=== PATIENT | male | born 1960 | race Caucasian/White ===

== ENCOUNTER 2016-10-20 05:49 | Day surgery (SDC) | payer OTHER ==
[~2016-10-20] VITALS: Ht 180.3 cm; Wt 76.0 kg
[2016-10-20 06:25] VITALS: BP 131/84
[2016-10-20] MEDS ORDERED: LIDOCAINE 1%, 2ML SQ PRN (06:30)
[2016-10-20] MEDS ORDERED: LACTATED RINGERS 1,000 ML IV SCH (06:30)
[2016-10-20] MEDS ORDERED: GLUC1TAB27 PO (06:32)
[2016-10-20] MEDS ORDERED: MULT-412 PO (06:32)
[2016-10-20] MEDS ORDERED: LIDOCAINE 1%, 2ML ONE (06:37)
[2016-10-20] MEDS ORDERED: FENTANYL PF 100 MCG/2ML ONE (06:38)
[2016-10-20] MEDS ORDERED: MIDAZOLAM 1 MG/ML, 2ML ONE (06:38)
[2016-10-20] MEDS ORDERED: BUPIVACAINE/PF 0.5% ONE (06:56)
[2016-10-20] MEDS ORDERED: BACITRACIN 50,000 UNIT ONE (06:57)
[2016-10-20] MEDS ORDERED: DEXAMETHASONE 4 MG/ML, 1ML ONE ×2 (07:27)
[2016-10-20] MEDS ORDERED: EPHEDRINE 50 MG/ML, 1ML ONE (07:27)
[2016-10-20] MEDS ORDERED: ONDANSETRON 2MG/ML, 2ML ONE ×2 (07:27)
[2016-10-20] MEDS ORDERED: PHENYLEPHRINE 10 MG/ML ONE (07:27)
[2016-10-20] MEDS ORDERED: NEOSTIGMINE 1 MG/ML, 10ML ONE (07:27)
[2016-10-20] MEDS ORDERED: ROCURONIUM 10 MG/ML ONE (07:27)
[2016-10-20] MEDS ORDERED: PROPOFOL 10 MG/ML, 20ML ONE ×2 (07:27)
[2016-10-20] MEDS ORDERED: CEFAZOLIN 1,000 MG ONE ×2 (07:27)
[2016-10-20] MEDS ORDERED: GLYCOPYRROLATE 0.2MG/1ML ONE (07:27)
[2016-10-20] MEDS ORDERED: hydrALAzine 20 MG/ML, 1ML IV PRN (07:30)
[2016-10-20] MEDS ORDERED: FENTANYL PF 100 MCG/2ML IV PRN (07:30)
[2016-10-20] MEDS ORDERED: ACETAMINOPHEN 325 MG TABLET PO PRN (07:30)
[2016-10-20] MEDS ORDERED: ONDANSETRON 2MG/ML, 2ML IVPush PRN (07:30)
[2016-10-20] MEDS ORDERED: LABETALOL 5MG/ML, 20ML IV PRN (07:30)
[2016-10-20] MEDS ORDERED: METOCLOPRAMIDE 5 MG/ML, 2ML IV PRN (07:30)
[2016-10-20] MEDS ORDERED: OXYcodone 5 MG/5 ML ORAL.SOL UDC PO PRN (07:30)
[2016-10-20] MEDS ORDERED: HYDROmorphone 1 MG/ML, 1ML IV PRN (07:30)
[2016-10-20] MEDS ORDERED: PROMETHAZINE 25 MG/ML, 1ML IV PRN (07:30)
[2016-10-20] MEDS ORDERED: ACETAMINOPHEN 325 MG TABLET ONE (08:26)
[2016-10-20] MEDS ORDERED: KETOROLAC 30 MG/1 ML ONE (08:26)
[2016-10-20] MEDS ORDERED: KETOROLAC 30 MG/1 ML IV PRN (08:30)
== END 2016-10-20 09:45 | disposition home or self-care (01) ==
LOC: OUT 05:49
PROVIDERS: ATTEND Neurological Surgery
DX: G56.01 Carpal tunnel syndrome, right upper limb (principal); Z90.79 Acquired absence of other genital organ(s); Z72.89 Other problems related to lifestyle
CPT/HCPCS: 64721; J0690; J1100; J1885; J2250; J2370; J2405; J2704; J2710; J3010; J3490; J7120